=== PATIENT | male | born 1970 | race Caucasian/White ===

== ENCOUNTER 2016-05-11 17:54 | Emergency (ER) | payer BC ==
[2016-05-11 18:49] VITALS: BP 157/85
[2016-05-11] MEDS ORDERED: BSS OPTH.SOL* BTL ONE (18:54)
[2016-05-11] MEDS ORDERED: Fluorescein Sodium TOPICAL* 1 MG TEST ONE (18:54)
[2016-05-11] MEDS ORDERED: Tetracaine 0.5% OPTH.SOL 15ML* BTL ONE (18:55)
--- NOTE | 2016-05-11 19:22 | UC ---
Eye Complaint HPI - History of Current Complaint Chief Complaint: Edel Stated Complaint: EYE IRRITATION Time Seen by Provider: 05/11/16 19:13 Hx Obtained From: Patient Onset/Duration: Sudden Onset - pt felt something hit his R eye after blowing dust from work bench this afternoon Timing: Constant Severity Initially: Moderate Severity Currently: Moderate - pain persists Location of Injury: Conjunctiva Character: Throbbing, Foreign Body Sensation Aggravating Factor(s): Light, Blinking Alleviating Factor(s): Nothing Associated Signs And Symptoms: Positive: Photophobia, Drainage (Clear). Negative: Vision Impairment Right - Allergies/Home Medications Allergies/Adverse Reactions: Allergies Allergy/AdvReac Type Severity Reaction Status Date / Time Erythromycin Allergy Itching Verified 05/11/16 18:49 Home Medications: Home Medications Diuretic 05/11/16 [History] PMH/Surg Hx/FS Hx/Imm Hx Previously Healthy: Yes Endocrine History Of: Denies: Diabetes, Thyroid Disease Cardiovascular History Of: Denies: Cardiac Disorders, Hypertension Respiratory History Of: Denies: COPD, Asthma GI/ History Of: Denies: Ulcer - Surgical History Surgical History: Yes Surgery Procedure, Year, and Place: wisdom teeth extraction, lt lower leg repair - Family History Known Family History: Positive: None - Social History Occupation: Employed Full-time - manager instrumentation Alcohol Use: Occasionally Substance Use Type: None Smoking Status (MU): Never Smoked Tobacco - Immunization History Most Recent Tetanus Shot: >10y Review of Systems Constitutional: Negative Eyes: Other - pain and tearing R eye ENT: Other - hx meniere's disease-stable Respiratory: Negative Cardiovascular: Negative Neurological: Negative Psychological: Negative All Other Systems Reviewed And Are Negative: Yes Physical Exam Triage Information Reviewed: Yes Appearance: Well-Appearing, Well-Nourished, Pain Distress - cannot keep R eye open, rubbing eye Vital Signs: Initial Vital Signs Temp 98.6 F 05/11/16 18:45 Pulse 62 05/11/16 18:45 Resp 18 05/11/16 18:45 BP 157/85 05/11/16 18:45 Pulse Ox 100 05/11/16 18:45 Vital Signs Reviewed: Yes Eyes: Positive: Conjunctiva Inflamed, Discharge - clear Respiratory Exam: Normal Respiratory: Positive: Lungs clear Cardiovascular Exam: Normal Neurological Exam: Normal Psychological Exam: Normal Skin Exam: Normal Procedures - Eye Procedure Alcaine Drops Administered: Yes Eye Irrigated w/ Saline (ccs): 60 Eye Complaint Course/Dx - Course Course Of Treatment: fluorosciene stain reveals corneal abrasion R eye. no evidence of F.B. - Differential Dx/Diagnosis Differential Diagnosis/HQI/PQRI: Conjunctivitis, Corneal Abrasion, Foreign Body Provider Diagnoses: corneal abrasion R eye Discharge - Discharge Plan Condition: Good Disposition: HOME Patient Education Materials: Corneal Abrasion (ED), Diphtheria/Acellular Pertussis/Tetanus Vaccine (DTaP) (By injection) Referrals: Edil Perry MD [Medical Doctor] - Additional Instructions: avoid bright light use ibuprofen 800mg every 6 hours as needed for pain (take with food) use eye drops as directed If no better in 24h recheck here or with eye doctor
[2016-05-11] MEDS ORDERED: Ciprofloxacin 0.3% OPTH.SOL* 2.5 ML BTL RIGHT EYE ONE (19:25)
[2016-05-11] MEDS ORDERED: Tetan/Diph/Pertus SYR(Tdap)* 0.5 ML SYR(BOOSTRIX) use SYR IM ONE (19:25)
== END 2016-05-11 19:52 | disposition home or self-care (01) ==
LOC: UCEAST 17:54
DX: S05.01XA Injury of conjunctiva and corneal abrasion without foreign body, right eye, initial encounter (principal); X58.XXXA Exposure to other specified factors, initial encounter; Y93.89 Activity, other specified; Y92.69 Other specified industrial and construction area as the place of occurrence of the external cause; Z23 Encounter for immunization; Z88.1 Allergy status to other antibiotic agents
CPT/HCPCS: 90471; 90715; 99212; A9270-GY; G0463

== ENCOUNTER 2017-12-07 09:35 | Emergency (ER) | payer BC ==
[2017-12-07 10:18] VITALS: BP 152/87
--- NOTE | 2017-12-07 10:30 | UC ---
Lower Extremity/Ankle HPI - HPI Summary HPI Summary: Patient was playing soccer, running on turf, felt a pop in the mid foot. felt pain, but continued activity, woke up with bruising and swelling of the foot, painful with ambulation - History of Current Complaint Chief Complaint: UCLowerExtremity Stated Complaint: RIGHT FOOT INJURY Time Seen by Provider: 12/07/17 10:20 Hx Obtained From: Patient Onset/Duration: Lasting Hours Severity Initially: Moderate Severity Currently: Moderate Pain Intensity: 4 Aggravating Factor(s): Standing, Ambulation Alleviating Factor(s): Rest Able to Bear Weight: Yes - Allergies/Home Medications Allergies/Adverse Reactions: Allergies Allergy/AdvReac Type Severity Reaction Status Date / Time erythromycin base Allergy Unknown Itching Verified 12/07/17 10:07 Home Medications: Home Medications Acetaminophen TAB* [Tylenol TAB*] 650 mg PO Q4H PRN 12/07/17 [History Confirmed 12/07/17] Ibuprofen TAB* [Advil TAB*] 800 mg PO Q6H PRN 12/07/17 [History Confirmed ] PMH/Surg Hx/FS Hx/Imm Hx Previously Healthy: Yes - Surgical History Surgical History: Yes Surgery Procedure, Year, and Place: wisdom teeth extraction, RIGHT lower leg repair. TUBES EARS AUGUST 2017 - Family History Known Family History: Positive: None Negative: Cardiac Disease, Hypertension - Social History Alcohol Use: Occasionally Substance Use Type: None Smoking Status (MU): Never Smoked Tobacco - Immunization History Most Recent Tetanus Shot: >10y Review of Systems Constitutional: Negative Skin: Bruising Eyes: Negative ENT: Negative Respiratory: Negative Cardiovascular: Negative Gastrointestinal: Negative Genitourinary: Negative Motor: Negative Neurovascular: Negative Musculoskeletal: Arthralgia, Edema, Myalgia Neurological: Negative Psychological: Negative Is Patient Immunocompromised?: No All Other Systems Reviewed And Are Negative: Yes Physical Exam Triage Information Reviewed: Yes Appearance: Well-Appearing, Well-Nourished, Pain Distress Vital Signs: Initial Vital Signs Temp 98.1 F 12/07/17 10:09 Pulse 64 12/07/17 10:09 Resp 18 12/07/17 10:09 BP 152/87 12/07/17 10:09 Pulse Ox 100 12/07/17 10:09 Vital Signs Reviewed: Yes Eye Exam: Normal ENT Exam: Normal Dental Exam: Normal Neck exam: Normal Respiratory Exam: Normal Cardiovascular Exam: Normal Abdominal Exam: Normal Musculoskeletal: Positive: ROM Intact, Strength Limited @ - pain with weight bearing, Edema @ - medial aspect of foot Neurological Exam: Normal Psychological Exam: Normal Skin: Positive: Other - bruising of right medial foot Lower Extremity Course/Dx - Course Course Of Treatment: hx obtained, exam performed ,meds reviewed, xray obtained, sara and post op shoe applied, recommend follow up with ortho if pain persisits - Differential Dx/Diagnosis Differential Diagnosis/HQI/PQRI: Contusion, Fracture (Closed), Sprain, Strain Provider Diagnoses: mid foot sprain of the right foot Discharge - Sign-Out/Discharge Documenting (check all that apply): Patient Departure All imaging exams completed and their final reports reviewed: Yes - Discharge Plan Condition: Stable Disposition: HOME Patient Education Materials: Foot Sprain (ED) Referrals: Christopher Harris MD [Primary Care Provider] - Gene Chaudhry MD [Medical Doctor] - Additional Instructions: 1. Your xray was negative, if pain persists further imaging may be necessary 2. wear the sara for reduction of swelling and foot support 3. The post op shoe is also good for additional supprot while healing 4. I recommend warm water epsom salt soakes twice daily 5. elevate foot at rest 6. start some strengthening foot exercises in another 48 hours. see sheet 7. if not improving in the next week, follow up with Dr Chaudhry, or your own orthopedic. - Billing Disposition and Condition Condition: STABLE Disposition: Home
--- NOTE | 2017-12-07 10:50 | RAD ---
INDICATION: Weightbearing pain and bruising at the mid-level metatarsal area after soccer injury COMPARISON: None. TECHNIQUE: 3 views of the right foot were obtained. FINDINGS: There is a partially visualized plate and screw fixator overlying the lateral distal fibular malleolus that appears to be intact distally. The adequately corticated bones are properly aligned. Joint spaces appear maintained. No fracture, dislocation or focal bony abnormality is seen. IMPRESSION: NO RADIOGRAPHICALLY APPARENT ACUTE FRACTURE OR DISLOCATION. If the patient's symptoms persist, follow-up imaging is recommended.
== END 2017-12-07 11:20 | disposition home or self-care (01) ==
LOC: UCCORT 09:35
DX: S93.601A Unspecified sprain of right foot, initial encounter (principal); X50.0XXA Overexertion from strenuous movement or load, initial encounter; Y93.66 Activity, soccer; Y92.9 Unspecified place or not applicable; Z88.1 Allergy status to other antibiotic agents
CPT/HCPCS: 99212; G0463